=== PATIENT | female | born 1970 ===

== ENCOUNTER 2020-06-02 06:19 | Day surgery (SDC) | payer OTHER ==
[~2020-06-02 06:19] MED LIST: CARAFATE1 GM PO; DICY20TA PO; FLONAS; PRILOSEC OTC20 MG PO; ZYRTEC PO
[2020-06-02] MEDS ORDERED: PERCOCET 5-3251 EACH PO (09:06)
[2020-06-02] MEDS ORDERED: KETO10TA2 PO (09:07)
[2020-06-02] MEDS ORDERED: NEURONTIN300 MG PO (09:07)
== END 2020-06-02 17:10 | disposition home or self-care (01) ==
LOC: CIR.AMB 06:19
PROVIDERS: ATTEND Surgery
DX: K64.8 Other hemorrhoids (principal); K64.4 Residual hemorrhoidal skin tags; Z20.828 Contact with and (suspected) exposure to other viral communicable diseases